=== PATIENT | female | born 1940 | race Caucasian/White ===

== ENCOUNTER 2017-04-12 20:48 | Emergency (ER) | payer OTHER ==
[~2017-04-12] VITALS: Ht 154.9 cm; Wt 68.0 kg
--- NOTE | 2017-04-12 21:25 | NUR ---
PT PRESENTED TO THE ER WITH A C/O RT WRIST PAIN S/P FALL.
--- NOTE | 2017-04-12 21:50 | NUR ---
ORTHO SPLINT IN PROCESS OF BEING APPLIED.
[2017-04-12 21:54] VITALS: BP 142/73
== END 2017-04-12 22:04 | disposition home or self-care (01) ==
LOC: ER 20:50
DX: S52.501A Unspecified fracture of the lower end of right radius, initial encounter for closed fracture (principal); W01.0XXA Fall on same level from slipping, tripping and stumbling without subsequent striking against object, initial encounter; Y93.89 Activity, other specified; Y92.89 Other specified places as the place of occurrence of the external cause; Y99.9 Unspecified external cause status
CPT/HCPCS: 73110; A4606; Z7610